=== PATIENT | male | born 1995 | race African-American/Black ===

== ENCOUNTER 2022-09-28 12:35 | Emergency (ER) | payer SELFPAY ==
[2022-09-28] MEDS ORDERED: Lidocaine 1% (PF) 30 ML VIAL ONE (13:06)
[2022-09-28] MEDS ORDERED: Boostrix 0.5 ML (Tdap) VIAL (>/=7 yrs of age) ONE (13:06)
== END 2022-09-28 13:40 | disposition home or self-care (01) ==
LOC: CSHERS 12:35
DX: S01.511A Laceration without foreign body of lip, initial encounter (principal); Z23 Encounter for immunization; W26.8XXA Contact with other sharp object(s), not elsewhere classified, initial encounter
CPT/HCPCS: 12011; 90471; 90715; J2001

== ENCOUNTER 2023-04-02 17:55 | Emergency (ER) | payer SELFPAY ==
[2023-04-02] MEDS ORDERED: Ketorolac Tromethamine 30 MG (1 mL) VIAL ONE (19:08)
[2023-04-02 19:41] LABS: #Eosinphils 0.1 10x3/uL (0.0-0.5); #Monocytes 0.8 10x3/uL (0.0-1.1); #Neutrophils 2.7 10x3/uL (1.5-8.4); %Basophils 0.4 % (0.0-2.0); %Lymphocytes 33.9 % (18.0-47.0); %Monocytes 14.8 % (0.0-10.0); %Neutrophils 48.7 % (40.0-75.0); Hematocrit 43.4 % (38.8-50.0); Hemoglobin 14.4 g/dL (13.5-17.5); Mean Corpuscular HGB CONC 33.2 g/dL (32.0-36.0); Mean Corpuscular Hemoglobin 26.5 pg (27.0-33.0); Mean Corpuscular Volume 79.8 fl (81.2-95.1); Mean Platelet Volume 9.5 fl (7.4-10.4); Platelet Count 278 10x3/uL (150-450); RBC Distribution Width 13.3 % (11.5-14.5); Red Blood Cell (RBC) Count 5.44 10x6/uL (4.32-5.72); White Blood Cell (WBC) Count 5.5 10x3/uL (3.5-10.5)
[2023-04-02 19:43] LABS: ALT (SGPT) 182 U/L (8-55); AST (SGOT) 66 U/L (5-34); Albumin 4.7 g/dL (3.5-5.0); Alkaline Phosphatase 64 U/L (40-110); Anion Gap 14 mmol/L (10-20); BUN (Urea Nitrogen) 14 mg/dL (8.9-20.6); Bilirubin, Total 0.5 mg/dL (0.2-1.2); Calc. Creatinine Clearance 0 mL/min (70-130); Calcium 9.7 mg/dL (7.8-10.44); Carbon Dioxide 25 mmol/L (22-29); Chloride 104 mmol/L (98-107); Estimated GFR 93; Glucose 91 mg/dL (70-105); Potassium 3.8 mmol/L (3.5-5.1); Protein, Total 8.7 g/dL (6.0-8.3); Sodium 139 mmol/L (136-145)
== END 2023-04-02 21:40 | disposition home or self-care (01) ==
LOC: CSHERS 17:55
DX: R51.9 Headache, unspecified (principal); K76.89 Other specified diseases of liver
CPT/HCPCS: 76705; 80053; 83690; 85025; 96361; 96374; J1885